=== PATIENT | female | born 1995 | race Two or more races ===

== ENCOUNTER 2021-11-13 13:45 | Outpatient (CLI) | payer OTHER | END 2021-11-13 15:09 | disposition home or self-care (01) | LOC: PRENATAL 13:45 | PROVIDERS: ATTEND Obstetrics & Gynecology Maternal & Fetal Medicine | DX: Z36.89 Encounter for other specified antenatal screening (principal); O36.80X1 Pregnancy with inconclusive fetal viability, fetus 1; Z3A.12 12 weeks gestation of pregnancy ==

== ENCOUNTER 2022-01-06 12:41 | Outpatient (CLI) | payer OTHER | END 2022-01-06 14:15 | disposition home or self-care (01) | LOC: PRENATAL 12:41 | PROVIDERS: ATTEND Obstetrics & Gynecology Maternal & Fetal Medicine | DX: O35.0XX0 Maternal care for (suspected) central nervous system malformation in fetus, not applicable or unspecified (principal); Z3A.20 20 weeks gestation of pregnancy ==

== ENCOUNTER 2022-04-10 05:18 | Inpatient (IN) | payer OTHER ==
[2022-04-10] MEDS ORDERED: IRON325 MG PO (06:41)
[2022-04-10] MEDS ORDERED: PRENATAL CAPLE1 EAC1 PO (06:41)
[2022-04-10] MEDS ORDERED: FLAGYL375 MG PO (06:41)
[2022-04-13] MEDS ORDERED: Procardia Xl 30MG TA PO (09:29)
== END 2022-04-13 09:44 | disposition home or self-care (01) | DRG 833 ==
LOC: LDR 05:18 → OB/GYN 15:40
PROVIDERS: ADMIT Obstetrics & Gynecology; ATTEND Obstetrics & Gynecology
PROC: 4A1HXCZ Monitoring of Products of Conception, Cardiac Rate, External Approach (ICD-10-PCS; principal; 2022-04-10)
DX: O60.03 Preterm labor without delivery, third trimester (principal); Z3A.33 33 weeks gestation of pregnancy; Z20.822 Contact with and (suspected) exposure to COVID-19

== ENCOUNTER 2022-05-08 06:04 | Inpatient (IN) | payer OTHER ==
[~2022-05-08] VITALS: Ht 152.4 cm; Wt 51.7 kg
[~2022-05-08 06:04] MED LIST: FLAGYL375 MG PO; IRON325 MG PO; PRENATAL CAPLE1 EAC1 PO; Procardia Xl 30MG TA PO
[2022-05-08] MEDS ORDERED: VALTREX1000 MG PO (07:27)
[2022-05-08] MEDS ORDERED: METRONIDAZOLE500 MG PO (07:29)
== END 2022-05-10 13:40 | disposition home or self-care (01) | DRG 807 ==
LOC: LDR 06:04 → OB/GYN 14:07
PROVIDERS: ADMIT Obstetrics & Gynecology; ATTEND Obstetrics & Gynecology
PROC: 10E0XZZ Delivery of Products of Conception, External Approach (ICD-10-PCS; principal; 2022-05-08)
PROC: 0W8NXZZ Division of Female Perineum, External Approach (ICD-10-PCS; 2022-05-08)
PROC: 4A1HXCZ Monitoring of Products of Conception, Cardiac Rate, External Approach (ICD-10-PCS; 2022-05-08)
DX: O41.03X0 Oligohydramnios, third trimester, not applicable or unspecified (principal); Z3A.37 37 weeks gestation of pregnancy; Z37.0 Single live birth; Z20.2 Contact with and (suspected) exposure to infections with a predominantly sexual mode of transmission; Z20.822 Contact with and (suspected) exposure to COVID-19

== ENCOUNTER 2024-08-26 13:20 | Emergency (ER) | payer OTHER ==
[~2024-08-26] VITALS: Ht 152.4 cm; Wt 43.5 kg
[~2024-08-26 13:20] MED LIST changes: +METRONIDAZOLE500 MG PO; +VALTREX1000 MG PO
[2024-08-26 15:08] LABS: HEMATOCRIT 33.8 % (36.0-45.00); HEMOGLOBIN 11.2 g/dL (12.0-15.00); MEAN CORPUSCULAR HEMOGLOBIN 27.7 pg (27.00-32.0); MEAN CORPUSCULAR HGB CONC 33.1 g/dl (32.0-36.0); PLATELET COUNT 214 K/uL (150-450); RED BLOOD COUNT 4.02 M/uL (4.00-6.00); RED CELL DISTRIBUTION WIDTH 15.1 % (11.5-14.5)
== END 2024-08-26 16:55 | disposition home or self-care (01) ==
LOC: ER 13:22
PROVIDERS: Emergency Medicine
DX: O20.9 Hemorrhage in early pregnancy, unspecified (principal); O99.891 Other specified diseases and conditions complicating pregnancy; D27.0 Benign neoplasm of right ovary; Z3A.01 Less than 8 weeks gestation of pregnancy

== ENCOUNTER 2024-10-23 15:06 | Emergency (ER) | payer OTHER ==
[~2024-10-23] VITALS: Ht 167.6 cm; Wt 59.0 kg
[2024-10-23] MEDS ORDERED: 0.9 % SODIUM CHLORIDE 1,000 ML IV STA (16:28)
[2024-10-23 17:43] LABS: PH,URINE 8.5 (5.0-8.0); URINE APPEARANCE Cloudy; URINE BILIRRUBIN Negative (NEGATIVE); URINE BLOOD Negative; URINE COLOR Yellow; URINE GLUCOSE Negative (NEGATIVE); URINE KETONE Trace (NEGATIVE); URINE LEUKOCYTE Trace; URINE NITRATE Negative; URINE PROTEIN Negative (NEGATIVE); URINE UROBILINOGEN 0.2 E.U./dl
[2024-10-23 17:44] LABS: HEMATOCRIT 32.3 % (36.0-45.00); HEMOGLOBIN 10.9 g/dL (12.0-15.00); MEAN CELL VOLUME 84.3 fL (80.00-100.00); MEAN CORPUSCULAR HEMOGLOBIN 28.4 pg (27.00-32.0); MEAN CORPUSCULAR HGB CONC 33.6 g/dl (32.0-36.0); PLATELET COUNT 212 K/uL (150-450); RED BLOOD COUNT 3.84 M/uL (4.00-6.00); RED CELL DISTRIBUTION WIDTH 15.4 % (11.5-14.5)
[2024-10-23 17:49] LABS: URINE BACTERIA 577.5 uL (0.0-1933); URINE EPITHELIAL CELLS 26.1 uL (0.0-38.8); URINE RBC 8.3 uL (0.0-20.8); URINE WBC 9.4 uL (0.0-23.2)
[2024-10-23 17:54] LABS: URINE CAST 0.14 uL (0.0-1.40)
[2024-10-23 18:01] LABS: CALCIUM 9.2 mg/dL (8.5-10.1); CREATININE SERUM 0.42 mg/dL (0.55-1.02); GFR 179.65; POTASSIUM 3.67 mEq/L (3.5-5.1)
== END 2024-10-23 19:14 | disposition home or self-care (01) ==
LOC: ER 15:08
PROVIDERS: Emergency Medicine
DX: O26.892 Other specified pregnancy related conditions, second trimester (principal); Z3A.14 14 weeks gestation of pregnancy; R55 Syncope and collapse

== ENCOUNTER 2024-12-01 09:55 | Outpatient (CLI) | payer OTHER | END 2024-12-01 09:58 | disposition home or self-care (01) | LOC: PRENATAL 09:55 | PROVIDERS: ATTEND Obstetrics & Gynecology Maternal & Fetal Medicine | DX: O44.00 Complete placenta previa NOS or without hemorrhage, unspecified trimester (principal); Z14.8 Genetic carrier of other disease; Z3A.20 20 weeks gestation of pregnancy ==

== ENCOUNTER → 2025-02-23 14:23 | Outpatient (CLI) | payer OTHER | END | disposition home or self-care (01) | LOC: PRENATAL 14:23 | PROVIDERS: ATTEND Obstetrics & Gynecology Maternal & Fetal Medicine | DX: O26.849 Uterine size-date discrepancy, unspecified trimester (principal); O36.8199 Decreased fetal movements, unspecified trimester, other fetus; Z14.8 Genetic carrier of other disease; O43.90 Unspecified placental disorder, unspecified trimester; O99.019 Anemia complicating pregnancy, unspecified trimester; Z3A.32 32 weeks gestation of pregnancy ==

== ENCOUNTER 2025-04-06 08:04 | Inpatient (IN) | payer OTHER ==
[~2025-04-06] VITALS: Ht 152.4 cm; Wt 2.7 kg
[2025-04-06 08:20] VITALS: BP 106/73
[2025-04-06 08:55] LABS: BASO % 0.7 % (0.1-1.2); EOS # 0.04 (0.04-0.54); EOS % 0.5 % (0.7-7.0); HEMATOCRIT 35.1 % (34.1-44.9); HEMOGLOBIN 11.4 g/dL (11.2-15.7); LYMPH # 1.59 (1.18-3.74); LYMPH % 18.5 % (19.3-53.1); MEAN CORPUSCULAR HEMOGLOBIN 27.9 pg (25.6-32.2); MONO # 0.73 (0.24-0.82); MONO % 8.5 % (4.7-12.5); NEUT # 5.54 (1.56-6.13); NEUT % 64.6 % (34.0-71.1); PLATELET COUNT 135 K/uL (163-369); RED BLOOD COUNT 4.09 M/uL (3.93-5.22); RED CELL DISTRIBUTION WIDTH 20.5 % (11.6-14.4)
[2025-04-06] MEDS ORDERED: RINGERS SOLUTION,LACTATED 1,000 ML IV SCH ×2 (09:15→14:00)
[2025-04-06 09:19] LABS: INR < 0.93; PARTIAL THROMBOPLASTIN TIME 26.1 SECONDS (22.0-34.0); PROTHROMBIN TIME 9.8 SECONDS (9.0-11.5)
[2025-04-06 09:27] LABS: ALBUMIN 2.9 gm/dL (3.4-5.0); BILIRUBIN TOTAL 0.25 mg/dL (0.3-1.2); CALCIUM 8.4 mg/dL (8.5-10.1); CREATININE SERUM 0.34 mg/dL (0.55-1.02); GFR 227.63; GLOBULINA 3.5 G/DL (2.4-3.5); POTASSIUM 3.91 mEq/L (3.5-5.1); TOTAL PROTEIN 6.4 gm/dL (6.4-8.2)
[2025-04-06] MEDS ORDERED: OXYTOCIN 10 UNITS/ML VIAL ONE ×2 (12:25→17:41)
[2025-04-06] MEDS ORDERED: CEFOXITIN SODIUM 2,000 MG VIAL IV ONE (12:26)
[2025-04-06] MEDS ORDERED: ERYTHROMYCIN BASE OPHT 1GM EACH TUBE OP ONE ×2 (12:26→14:00)
[2025-04-06] MEDS ORDERED: OXYTOCIN 1,000 ML IV SCH (14:00)
[2025-04-06] MEDS ORDERED: CHLORHEXIDINE GLUCONATE 120 ML BOTTLE TOP NR (14:00)
[2025-04-06] MEDS ORDERED: MORPHINE SULFATE 4 MG/ML CARTRIDGE IV PRN (14:00)
[2025-04-06] MEDS ORDERED: ACETAMINOPHEN WITH CODEINE 1 UDTAB TABLET PO PRN (14:15)
[2025-04-06] MEDS ORDERED: PROMETHAZINE HCL 25 MG/ML AMPUL IV SCH (14:15)
[2025-04-06] MEDS ORDERED: KETOROLAC TROMETHAMINE 60 MG VIAL IM NR (15:30)
[2025-04-06] MEDS ORDERED: KETOROLAC TROMETHAMINE 60 MG VIAL IM ONE (17:41)
[2025-04-06 18:23] VITALS: BP 112/73
[2025-04-06 18:36] LABS: BASO % 0.5 % (0.1-1.2); EOS # 0.01 (0.04-0.54); EOS % 0.1 % (0.7-7.0); HEMATOCRIT 33.1 % (34.1-44.9); HEMOGLOBIN 10.9 g/dL (11.2-15.7); LYMPH # 1.09 (1.18-3.74); LYMPH % 8.6 % (19.3-53.1); MEAN CORPUSCULAR HEMOGLOBIN 27.6 pg (25.6-32.2); MONO # 0.85 (0.24-0.82); MONO % 6.7 % (4.7-12.5); NEUT # 10.17 (1.56-6.13); NEUT % 80.4 % (34.0-71.1); PLATELET COUNT 136 K/uL (163-369); RED BLOOD COUNT 3.95 M/uL (3.93-5.22); RED CELL DISTRIBUTION WIDTH 20.2 % (11.6-14.4)
[2025-04-06] MEDS ORDERED: SIMETHICONE 125 MG CAPSULE PO SCH (21:00)
[2025-04-07 00:44] VITALS: BP 97/65
[2025-04-07 08:00] VITALS: BP 102/69
[2025-04-07] MEDS ORDERED: NAPROXEN 500 MG TABLET PO SCH (09:11)
[2025-04-07] MEDS ORDERED: ACETAMINOPHEN WITH CODEINE 1 UDTAB TABLET PO PRN (09:15)
[2025-04-07 16:55] VITALS: BP 100/67
[2025-04-07 20:53] VITALS: BP 101/66
[2025-04-07 23:53] VITALS: BP 90/55
[2025-04-08 08:43] VITALS: BP 100/64
[2025-04-08 14:35] VITALS: BP 100/66; BP 103/69
[2025-04-09] VITALS: BP 90/63
[2025-04-09 05:00] VITALS: BP 99/60
[2025-04-09 08:05] VITALS: BP 103/71
[2025-04-09] MEDS ORDERED: Tylenol #3 PO (10:39)
[2025-04-09] MEDS ORDERED: NAPR500T14 PO (10:39)
== END 2025-04-09 13:25 | disposition home or self-care (01) | DRG 788 ==
LOC: LDR 08:04 → O/R 12:53 → OB/GYN 14:36
PROVIDERS: ADMIT Obstetrics & Gynecology; ATTEND Obstetrics & Gynecology
PROC: 4A1HXCZ Monitoring of Products of Conception, Cardiac Rate, External Approach (ICD-10-PCS; 2025-04-06)
PROC: 10D00Z1 Extraction of Products of Conception, Low, Open Approach (ICD-10-PCS; principal; 2025-04-06 13:30)
DX: O82 Encounter for cesarean delivery without indication (principal); Z3A.38 38 weeks gestation of pregnancy; Z37.0 Single live birth